=== PATIENT | female | born 1975 | race Caucasian/White ===

== ENCOUNTER 2016-08-02 11:34 | Emergency (ER) | payer MEDICAID, OTHER ==
[~2016-08-02] VITALS: Ht 170.2 cm; Wt 72.6 kg
[2016-08-02] MEDS ORDERED: SODIUM CHLORIDE 0.9% 1,000 ML IVB ONE (12:58)
[2016-08-02] MEDS ORDERED: SODIUM CHLORIDE 0.9% 1,000 ML IV ONE ×2 (13:00→15:45)
[2016-08-02] MEDS ORDERED: HYDROmorphone HCL 2 MG/ML VL IV ONE ×2 (13:00→15:15)
[2016-08-02] MEDS ORDERED: ONDANSETRON HCL 4 MG/2 ML VIAL IV ONE (13:00)
[2016-08-02] MEDS ORDERED: PANTOPRAZOLE SODIUM 40 MG/10 ML VIAL IV ONE (13:15)
[2016-08-02 13:28] LABS: Basophils # (auto) 0 uL; Basophils % (auto) 0.3 % (0.0-2.0); Eosinophils # (auto) 0.1 uL; Eosinophils % (auto) 0.7 % (0.0-7.0); Hematocrit 43.2 % (36.0-46.0); Hemoglobin 14.5 g/dL (12.2-16.2); Lymphocytes # (auto) 0.4 uL; Lymphocytes % (auto) 2.7 % (10.0-50.0); Mean Corpuscular Hemoglobin 31.3 pg (28.0-32.0); Mean Corpuscular Hgb Conc. 33.6 g/dL (32.0-36.0); Mean Platelet Volume 7.9 fL (7.4-10.4); Monocytes # (auto) 0.6 uL; Monocytes % (auto) 4.8 % (0.0-12.0); Neutrophils # (auto) 12.4 uL; Neutrophils % (auto) 91.5 % (37.0-80.0); Platelet Count (auto) 332 10^3/uL (140-450); Red Cell Distribution Width 13.6 % (11.6-16.0); White Blood Cell 13.5 10^3/uL (4.4-10.8)
[2016-08-02 13:49] LABS: Albumin 3.6 g/dL (3.4-5.0); Alkaline Phosphatase 58 U/L (45-117); Amylase 23 U/L (25-115); Anion Gap 12 (5-15); Aspartate Aminotransferase 22 U/L (15-37); BUN/Creatinine Ratio 14.7; Bilirubin, Total 0.6 mg/dL (0.2-1.0); Blood Urea Nitrogen 14 mg/dL (7-18); Calcium 8.8 mg/dL (8.5-10.1); Carbon Dioxide 19 mmol/L (21-32); Chloride 109 mmol/L (98-107); GFR African American 83 mL/min; GFR Non-African American 69 mL/min; Glucose 96 mg/dL (74-106); Potassium 3.5 mmol/L (3.5-5.1); Sodium 140 mmol/L (136-145); Total Protein 7.9 g/dL (6.4-8.2)
[2016-08-02 14:56] LABS: Urine Bilirubin Negative (Negative); Urine Color Yellow (Yellow); Urine Glucose Normal (Normal); Urine Ketone Negative (Negative); Urine Nitrite Negative (Negative); Urine RBC 1 /hpf (0 - 4); Urine Squamous Epithelial Cell FEW /hpf (<5); Urine Urobilinogen Normal (Negative); Urine pH 8.5 (5.0-8.0)
[2016-08-02 14:57] LABS: Urine Blood 2+ /uL (Negative)
[2016-08-02] MEDS ORDERED: METOCLOPRAMIDE HCL 5MG/ml INJ 2ml VIAL IV ONE (15:15)
[2016-08-02] MEDS ORDERED: cefTRIAXone 1GM/50ML D5W 50 ML IV ONE (16:00)
[2016-08-02 16:24] VITALS: BP 116/74
== END 2016-08-02 16:39 | disposition home or self-care (01) ==
LOC: EDBD 11:34 → ER 11:38
DX: E86.0 Dehydration (principal); F12.10 Cannabis abuse, uncomplicated; D72.829 Elevated white blood cell count, unspecified; M79.7 Fibromyalgia; M19.90 Unspecified osteoarthritis, unspecified site
CPT/HCPCS: 36415; 74176; 80053; 80307; 80320; 81001; 82150; 83690; 85025; 96361; 96365; 96375; 96376; 99291; C9113; J0696; J1170; J2405; J2765; J7030